=== PATIENT | male | born 1945 | race Caucasian/White ===

== ENCOUNTER 2017-09-20 23:05 | Emergency (ER) | payer MEDICARE ==
[2017-09-20] MEDS ORDERED: Albuterol/Ipratropium NEB.SOL* Albuterol 2.5 MG/Ipratropium 0.5 MG 3 ML INH ONE (23:56)
[2017-09-20] MEDS ORDERED: LORazepam INJ* 2 MG/ML 1 ML VIAL IV PUSH ONE (23:56)
[2017-09-20] MEDS ORDERED: Albuterol 2.5 MG/3 ML NEB.SOL* (0.083%) INH ONE (23:56)
[2017-09-20] MEDS ORDERED: methylPREDNISolone 125 MG* 2 ML VIAL IV ONE (23:56)
[2017-09-21 00:30] LABS: ABS Basophils 0.1 10^3/ul (0-0.2); ABS Eosinophils 0.3 10^3/ul (0-0.6); ABS Lymphocytes 0.9 10^3/ul (1.0-4.8); ABS Monocytes 1.2 10^3/ul (0-0.8); ABS Neutrophils 8.9 10^3/ul (1.5-7.7); ABS Nucleated RBC 0 10^3/ul; Eosinophil % 2.3 % (0-6); Hematocrit 39 % (42-52); Hemoglobin 13.1 g/dl (14.0-18.0); Lymphocyte % 8.2 % (25-47); Mean Corpuscular HGB Conc 34 g/dl (31-36); Mean Corpuscular Hemoglobin 29 pg (27-31); Mean Corpuscular Volume 85 fL (80-94); Mean Platelet Volume 7.7 um3 (7.4-10.4); Nucleated Red Blood Cells % 0.1; Platelet Count 310 10^3/ul (150-450); Red Blood Count 4.59 10^6/ul (4.0-5.4); Red Cell Distribution Width 15 % (10.5-15); White Blood Count 11.4 10^3/ul (3.5-10.8)
[2017-09-21 00:43] LABS: EGFR Non-African American 66.7 (>60)
[2017-09-21 01:52] VITALS: BP 144/75
--- NOTE | 2017-09-21 01:55 | ED ---
Raffi Danielson Rebecca, scribed for Wayne Dixon MD on 09/20/17 at 2339 . Complex/Multi-Sys Presentation - HPI Summary HPI Summary: Pt is a 72 y/o M BIBA who presents to ED c/o throat tightening s/p choking on a cough drop. Pt reports that he had leaned back in bed and his cough drop "went back into my windpipe." After this, he was able to lean forward and cough the drop out though afterwards he has had 3 episodes of being unable to breathe. Confirms he can breathe well, though it feels constricted. Reports a dull ache in the throat. Prior similar episode 10-12 years ago. Notes a recent illness for which he was started on Abx and eye drops today. - History Of Current Complaint Chief Complaint: EDThroatPain Time Seen by Provider: 09/20/17 23:26 Hx Obtained From: Patient Onset/Duration: Still Present Timing: Intermittent, Lasting: Severity Currently: Mild Location: Pain At: - Throat Character: Dull Associated Signs And Symptoms: Positive: Other - Throat pain and tightening - Allergies/Home Medications Allergies/Adverse Reactions: Allergies Allergy/AdvReac Type Severity Reaction Status Date / Time iodine Allergy Hives Verified 09/20/17 23:23 shellfish derived Allergy Anaphylatic Verified 09/20/17 23:23 Shock PMH/Surg Hx/FS Hx/Imm Hx Endocrine/Hematology History: Denies: Hx Diabetes Cardiovascular History: Denies: Hx Hypertension, Hx Pacemaker/ICD GI History: Reports: Hx Gastroesophageal Reflux Disease - WELL CONTROLLED History: Reports: Hx Kidney Stones - 30 YRS AGO Sensory History: Denies: Hx Contacts or Glasses, Hx Hearing Aid Opthamlomology History: Denies: Hx Contacts or Glasses Psychiatric History: Reports: Hx Depression - WELL CONTROLLED ON MEDS Denies: Hx Panic Disorder - Cancer History Cancer Type, Location and Year: SKIN CA - Surgical History Surgery Procedure, Year, and Place: LT KNEE SURGERY. SKIN CA REMOVAL FROM FACE Hx Anesthesia Reactions: No Infectious Disease History: No Infectious Disease History: Denies: Traveled Outside the [place] in Last 30 Days - Family History Known Family History: Positive: Other - Colon CA (father) - Social History Alcohol Use: Weekly Alcohol Amount: 3-4/WEEK IN THE SUMMER Substance Use Type: Reports: None Smoking Status (MU): Never Smoked Tobacco Review of Systems Positive: Sore Throat - Dull ache Positive: Other - Throat tightening; constricted All Other Systems Reviewed And Are Negative: Yes Physical Exam - Summary Physical Exam Summary: VITAL SIGNS: Reviewed. GENERAL: ~Patient is a well-developed and nourished female who is lying comfortable in the stretcher. Patient is not in any acute respiratory distress. Patient is anxious. HEAD AND FACE: No signs of trauma. No ecchymosis, hematomas or skull depressions. No sinus tenderness. EYES: PERRLA, EOMI x 2, No injected conjunctiva, no nystagmus. EARS: Hearing grossly intact. Ear canals and tympanic membranes are within normal limits. MOUTH: Oropharynx within normal limits. NECK: Supple, trachea is midline, no adenopathy, no JVD, no carotid bruit, no c- spine tenderness, neck with full ROM. CHEST: Symmetric, no tenderness at palpation LUNGS: Mild expiratory wheezes. No crackles. CVS: Regular rate and rhythm, S1 and S2 present, no murmurs or gallops appreciated. ABDOMEN: Soft, non-tender. No signs of distention. No rebound no guarding, and no masses palpated. Bowel sounds are normal. EXTREMITIES: FROM in all major joints, no edema, no cyanosis or clubbing. NEURO: Alert and oriented x 3. No acute neurological deficits. Speech is normal and follows commands. SKIN: Dry and warm Triage Information Reviewed: Yes Vital Signs On Initial Exam: Initial Vitals Temp Pulse Resp BP Pulse Ox 99.2 F 94 16 166/90 95 09/20/17 23:06 09/20/17 23:06 09/20/17 23:06 09/20/17 23:06 09/20/17 23:06 Vital Signs Reviewed: Yes Diagnostics - Vital Signs Vital Signs Temp Pulse Resp BP Pulse Ox 09/20/17 23:13 97 19 158/87 92 09/20/17 23:12 95 20 92 09/20/17 23:06 99.2 F 94 16 166/90 95 - Laboratory Result Diagrams: 09/21/17 00:12 09/21/17 00:12 Lab Statement: Any lab studies that have been ordered have been reviewed, and results considered in the medical decision making process. - Radiology CXR Xray Interpretation: No Acute Changes - No acute process. Radiology Interpretation Completed By: ED Physician Re-Evaluation - Re-Evaluation First Eval Re-Evaluation Time: 01:50 Change: Improved Comment: Pt is doing much better. Complex Multi-Symp Course/Dx Assessment/Plan: Pt is a 72 y/o M BIBA who presents to ED c/o throat tightening s/p choking on a cough drop. Pt reports that he had leaned back in bed and his cough drop "went back into my windpipe." After this, he was able to lean forward and cough the drop out though afterwards he has had 3 episodes of being unable to breathe. Confirms he can breathe well, though it feels constricted. Reports a dull ache in the throat. Prior similar episode 10-12 years ago. Notes a recent illness for which he was started on Abx and eye drops today. CXR reveals no acute findings. Bloodwork was done. Influenza A and B are negative. In the ED course, pt received ventolin, duoneb, ativan and solu-medrol which improved symptoms. Pt will be D/C to home with Dx of choke episode and anxiety. He understands and agrees. Allergies noted. - Diagnoses Provider Diagnoses: Choking episode, Anxiety Discharge - Sign-Out/Discharge Documenting (check all that apply): Discharge - Discharge - Discharge Plan Condition: Stable Disposition: HOME Patient Education Materials: Anxiety (ED), Foreign Body in Pharynx (ED) Referrals: Connor Tolbert MD [Primary Care Provider] - 3 Days Additional Instructions: RETURN TO EMERGENCY DEPARTMENT FOR ANY NEW OR WORSENING SYMPTOMS The documentation as recorded by the Raffi zambrano Rebecca accurately reflects the service I personally performed and the decisions made by me, Wayne Dixon MD.
--- NOTE | 2017-09-21 07:59 | RAD ---
HISTORY: Cough, foreign body sensation COMPARISONS: None VIEWS: 1: frontal portable view of the chest at 12:05 AM FINDINGS: LINES AND TUBES: None. CARDIOMEDIASTINAL SILHOUETTE: The cardiomediastinal silhouette is normal for portable technique. PLEURA: The costophrenic angles are sharp. No pleural abnormalities are noted. LUNG PARENCHYMA: The lungs are clear. ABDOMEN: The upper abdomen is clear. There is no subphrenic gas. BONES AND SOFT TISSUES: No bone or soft tissue abnormalities are noted. IMPRESSION: NO ACTIVE CARDIOPULMONARY DISEASE.
== END 2017-09-21 02:10 | disposition home or self-care (01) ==
LOC: ED 23:05
DX: R09.89 Other specified symptoms and signs involving the circulatory and respiratory systems (principal); F41.9 Anxiety disorder, unspecified
CPT/HCPCS: 36415; 71045; 80053; 85025; 87502; 94640; 96374; 96375; 99283; A9270-GY; J2060; J2930

== ENCOUNTER 2018-07-02 08:22 | Emergency (ER) | payer MEDICARE ==
[2018-07-02 08:36] VITALS: BP 124/73
[2018-07-02] MEDS ORDERED: Ondansetron ODT TAB* 4 MG PO ONE (09:34)
[2018-07-02] MEDS ORDERED: Ibuprofen TAB* 600 MG PO ONE (09:34)
--- NOTE | 2018-07-02 09:35 | UC ---
Complaint Male HPI - HPI Summary HPI Summary: DEVELOPED EXCRUCIATING LEFT FLANK/GROIN PAIN LAST NIGHT. HAD A FEW TWINGES OF DISCOMFORT OVER THE PAST FEW DAYS THAT WOULD SPONTANEOUSLY RESOLVE. STATES THIS PAIN IS SIMILAR TO WHEN HE HAD A KIDNEY STONE ABOUT 50 YEARS AGO. HE DENIES ANY DYSURIA OR URINARY FREQUENCY. NO FEVER. DOES HAVE SOME MILD NAUSEA BUT NO VOMITING. HE IS AN ACTIVE INDIVIDUAL AND WORKS OUT REGULARLY BUT ADMITS HE DOES NOT HYDRATE VERY WELL. FOLLOWS WITH DR. RODRÍGUEZ (UROLOGY). - History of Current Complaint Chief Complaint: UCGU Stated Complaint: KIDNEY STONE Time Seen by Provider: 07/02/18 08:48 Hx Obtained From: Patient Onset/Duration: Sudden Onset, Lasting Hours, Still Present Timing: Constant Severity Initially: Moderate Severity Currently: Severe Pain Intensity: 10 Pain Scale Used: 0-10 Numeric Location: Groin Character: Sharp, Colicy Aggravating Factor(s): Nothing Alleviating Factor(s): Nothing Associated Signs And Symptoms: Positive: Back Pain, Nausea. Negative: Fever, Dysuria - Allergies/Home Medications Allergies/Adverse Reactions: Allergies Allergy/AdvReac Type Severity Reaction Status Date / Time iodine Allergy Hives Verified 07/02/18 08:36 shellfish derived Allergy Anaphylatic Verified 07/02/18 08:36 Shock Home Medications: Home Medications DULoxetine CAP* [Cymbalta CAP*] 20 mg PO DAILY 07/02/18 [History Confirmed ] PMH/Surg Hx/FS Hx/Imm Hx GI/ History: Kidney Stones Psychological History: Depression Other Cancer History: SKIN CANCER - Surgical History Surgical History: Yes Surgery Procedure, Year, and Place: LT KNEE SURGERY. SKIN CA REMOVAL FROM FACE. carpal tunnel - Family History Known Family History: Positive: Other - Colon [place] (father) - Social History Alcohol Use: Occasionally Alcohol Amount: 3-4/WEEK IN THE SUMMER Substance Use Type: None Smoking Status (MU): Never Smoked Tobacco Review of Systems All Other Systems Reviewed And Are Negative: Yes Constitutional: Positive: Negative Respiratory: Positive: Negative Cardiovascular: Positive: Negative Gastrointestinal: Positive: Nausea Genitourinary: Positive: Other - LEFT GROIN/FLANK PAIN. Negative: Dysuria, Frequency, Urgency Physical Exam Triage Information Reviewed: Yes Appearance: Well-Appearing, Well-Nourished, Pain Distress - MODERATE Vital Signs: Initial Vital Signs Temp 97.6 F 07/02/18 08:33 Pulse 79 07/02/18 08:33 Resp 20 07/02/18 08:33 BP 124/73 07/02/18 08:33 Pulse Ox 99 07/02/18 08:33 Laboratory Tests 07/02/18 08:50 POC Urine Color Jessica POC Urine Clarity Clear POC Urine pH 6.0 POC Ur Specif [place] >= 1.030 POC Urine Protein Negative POC Ur Glucose (UA) Negative POC Urine Ketones Negative POC Urine Blood Trace-intact A POC Urine Nitrite Negative POC Urine Bilirubin Negative POC Urine Urobilinogen 0.2 POC U Leukocyte Esteras Negative Vital Signs Reviewed: Yes Eyes: Positive: Conjunctiva Clear ENT: Positive: Hearing grossly normal Neck: Positive: Supple Respiratory Exam: Normal Cardiovascular Exam: Normal Abdomen Description: Positive: Nontender, Soft. Negative: CVA Tenderness (R), CVA Tenderness (L), Distended, Guarding Musculoskeletal: Positive: No Edema Neurological: Positive: Alert Psychological: Positive: Age Appropriate Behavior Skin: Negative: Rashes Diagnostics - Radiology CT ABD/PELVIS W/O CONTRAST Radiology Interpretation Completed By: Radiologist Summary of Radiographic Findings: 1. 0.4 CM CALCULUS OF THE LEFT PROXIMAL URETER WITH MILD HYDRONEPHROSIS AND PERINEPHRIC STRANDING SUGGESTIVE OF FORNICEAL RUPTURE. 2. DIVERTICULOSIS. 3. HIATAL HERNIA Complaint Male Course/Dx - Course Course Of Treatment: PT PAIN WAS MUCH IMPROVED AFTER 600 MG OF IBUPROFEN. ADVISED TO CONTINUE THIS NEEDED FOR DISCOMFORT. PERCOCET GIVEN FOR BREAKTHROUGH PAIN. 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 SPOKE TO DR. RODRÍGUEZ WHO ADVISED PAIN CONTROL AND WAITING FOR A DAY OR 2 TO SEE IF THE STONE MOVES FURTHER DOWN THE URINARY TRACT. STATES POSSIBLE FORNICEAL RUPTURE DOES NOT CHANGE THE MANAGEMENT. ENCOURAGED PATIENT TO PUSH FLUIDS AND STAY WELL- HYDRATED. HE WILL CALL DR. RODRÍGUEZ'S OFFICE TODAY FOR FOLLOW-UP APPOINTMENT. - Differential Dx/Diagnosis Provider Diagnosis: Kidney stone on left side - Physician Notifications Discussed Patient Care With: Kane Rodríguez Time Discussed With Above Provider: 10:25 Instructed by Provider To: Have Pt Call For Appt. Discharge - Sign-Out/Discharge Documenting (check all that apply): Patient Departure All imaging exams completed and their final reports reviewed: Yes - Discharge Plan Condition: Stable Disposition: HOME Prescriptions: Ondansetron ODT TAB* [Zofran Odt TAB*] 4 mg PO Q6H PRN #20 tab.odt PRN Reason: Nausea/Vomiting oxyCODONE/Acetamin 5/325 MG* [Percocet 5/325 TAB*] 1 tab PO Q6H PRN #12 tab MDD 4 PRN Reason: Pain Patient Education Materials: Kidney Stones (ED) Referrals: Connor Tolbert MD [Primary Care Provider] - If Needed Kane Rodríguez MD [Medical Doctor] - Additional Instructions: CT TODAY SHOWS: 1. 0.4 CM CALCULUS OF THE LEFT PROXIMAL URETER WITH MILD HYDRONEPHROSIS AND PERINEPHRIC STRANDING SUGGESTIVE OF FORNICEAL RUPTURE. 2. DIVERTICULOSIS. 3. HIATAL HERNIA 600 MG IBUPROFEN EVERY 6 HOURS NEEDED FOR DISCOMFORT. OXYCODONE GIVEN FOR BREAKTHROUGH PAIN. ZOFRAN FOR NAUSEA. CALL DR. RODRÍGUEZ'S OFFICE TODAY AND SCHEDULE FOLLOW-UP APPOINTMENT FOR TOMORROW OR THE NEXT DAY. GO TO THE ER WITHOUT FAIL IF YOU DEVELOP WORSENING PAIN, FEVER, PERSISTENT NAUSEA/VOMITING OR ANY OTHER CONCERNING SYMPTOMS. PUSH FLUIDS! - Billing Disposition and Condition Condition: STABLE Disposition: Home
== END 2018-07-02 10:50 | disposition home or self-care (01) ==
LOC: UCEAST 08:22
DX: N20.0 Calculus of kidney (principal); Z88.8 Allergy status to other drugs, medicaments and biological substances; Z91.013 Allergy to seafood; F32.9 Major depressive disorder, single episode, unspecified; Z79.899 Other long term (current) drug therapy
CPT/HCPCS: 74176; 81003; 99212; A9270-GY; G0463

== ENCOUNTER 2019-03-01 16:28 | Emergency (ER) | payer MEDICARE ==
--- OUTSIDE RECORDS SUMMARY | 2019-03-01 16:34 | XMS REPORT | Continuity of Care Document ---
:1945 External Reference #:[id number] Author Name Rod Joshi, OD Address [address] [facility] [place] [address] Care Team Providers Name Role Phone Connor Tolbert MD - Internal Medicine Care Team Information Clinical Rehabilitation Coordinator [phone] Problems Description No Information Available Social History Type Date Description Comments Sex Unknown ETOH Use Occasionally consumes alcohol Tobacco Use Start: Unknown Patient has never smoked Smoking Status Reviewed: 02/07/19 Patient has never smoked Allergies, Adverse Reactions, Alerts Active Allergies Reaction Severity Comments Date Iodine 01/25/2017 Seafood 01/25/2017 Medications Active Medications SIG Qnty Indications Ordering Provider Date Doxazosin Mesylate Unknown 2mg Tablets Finasteride 5mg Unknown Tablets Nexium 40mg Unknown Capsules Duloxetine HCL Unknown 20mg Caps DR Mercado Amphetamine-Dextroamphetamine Unknown 10mg Tablets Immunizations Description No Information Available Vital Signs Date Vital Result Comment 01/25/2017 9:53am Intraocular Pressure Right Eye 16 mmHg Intraocular Pressure Left Eye 16 mmHg Results Description No Information Available Procedures Description No Information Available Medical Devices Description No Information Available Encounters Description No Information Available Assessments Description No Information Available Plan of Treatment No Information Available Functional Status Description No Information Available Mental Status Description No Information Available Referrals Description No Information Available
[2019-03-01] MEDS ORDERED: NS 0.9% 1000 ML** 1,000 ML IV ONE (17:12)
[2019-03-01] MEDS ORDERED: Ondansetron INJ* 2 MG/ML VIAL IV ONE (17:13)
[2019-03-01] MEDS ORDERED: Meclizine TAB* 12.5 MG PO ONE (17:14)
--- NOTE | 2019-03-01 17:21 | UC ---
Dizzy HPI HPI Summary: SUDDEN ONSET OF EXTREME DIZZINESS 3-4 HOURS AGO. PATIENT DROVE BACK FROM [place] AND WHEN GETTING OUT OF THE CAR STARTED FEELING SLIGHTLY "OFF". BY THE TIME HW GOT INTO THE HOUSE HE HAD TO LIE DOWN DUE TO THE EXTREME DIZZINESS. SYMPTOMS PERSISTED SO HE DECIDED TO COME HERE. WHILE TRYING TO GET INTO THE CAR TO COME HERE HE STARTED THROWING UP DUE TO THE NAUSEA. HE DENIES CHEST PAIN , SHORTNESS OF BREATH, HEADACHE. 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 Negative: Tinnitus, Chest Pain, SOB, Palpitations - Allergies/Home Medications Allergies/Adverse Reactions: Allergies Allergy/AdvReac Type Severity Reaction Status Date / Time iodine Allergy Hives Verified 03/01/19 16:44 shellfish derived Allergy Anaphylatic Verified 03/01/19 16:44 Shock Home Medications: Home Medications Dextroamphetamine/Amphetamine [Adderall 10 mg-] 1 tab PO DAILY 03/01/19 [ History Confirmed 03/01/19] Doxazosin TAB* [Cardura TAB*] 4 tab PO DAILY 03/01/19 [History Confirmed ] PMH/Surg Hx/FS Hx/Imm Hx GI/ History: Kidney Stones Psychological History: Depression Other Cancer History: SKIN CANCER - Surgical History Surgical History: Yes Surgery Procedure, Year, and Place: LT KNEE SURGERY. SKIN CA REMOVAL FROM FACE. carpal tunnel - Family History Known Family History: Positive: Other - Colon [place] (father) - Social History Alcohol Use: Daily Alcohol Amount: 3-4/WEEK IN THE SUMMER Substance Use Type: None Smoking Status (MU): Never Smoked Tobacco Review of Systems All Other Systems Reviewed And Are Negative: Yes Constitutional: Positive: Negative Skin: Positive: Negative Respiratory: Positive: Negative Cardiovascular: Positive: Negative Gastrointestinal: Positive: Vomiting, Nausea Neurological: Positive: Other - DIZZY Physical Exam Triage Information Reviewed: Yes Appearance: No Pain Distress, Well-Nourished Vital Signs: Initial Vital Signs Temp 98.8 F 03/01/19 16:40 Pulse 65 03/01/19 16:40 Resp 18 03/01/19 16:40 BP 159/83 03/01/19 16:40 Pulse Ox 98 03/01/19 16:40 Vital Signs Reviewed: Yes Eyes: Positive: Conjunctiva Clear ENT: Positive: Hearing grossly normal, TMs normal Neck: Positive: Supple, Nontender, No Lymphadenopathy Respiratory Exam: Normal Cardiovascular Exam: Normal Abdomen Description: Positive: Soft Musculoskeletal: Positive: No Edema Neurological: Positive: Alert Psychological: Positive: Age Appropriate Behavior Skin: Negative: Rashes Diagnostics - EKG Cardiac Rate: Bradycardia - 58 BPM Cardiac Rhythm: Sinus: Normal Ectopy: PACs ST Segment: Normal Dizzy Course/Dx - Course Course Of Treatment: PATIENT WITH RELATIVELY SUDDEN ONSET OF EXTREME DIZZINESS THIS AFTERNOON. NO CLEAR TRIGGER. PATIENT UNABLE TO SIT UP OR MOVE WITHOUT BECOMING EXTREMELY DIZZY AND NAUSEATED. PIV PLACED. NORMAL SALINE RUNNING IN. 4 MG ZOFRAN AND 25 MG OF MECLIZINE ADMINISTERED. TO [facility] [place] [facility] BY AMBULANCE. - Differential Dx/Diagnosis Provider Diagnosis: Dizziness - Physician Notifications Discussed Patient Care With: Tyree Stahl - TO [facility] [place] [facility] BY AMBULANCE Time Discussed With Above Provider: 17:25 Instructed by Provider To: MD Will See In ED Discharge ED - Sign-Out/Discharge Documenting (check all that apply): Patient Departure All imaging exams completed and their final reports reviewed: No Studies - Discharge Plan Condition: Stable Disposition: TRANS HIGHER LVL OF CARE FAC Referrals: Connor Tolbert MD [Primary Care Provider] - - Billing Disposition and Condition Condition: STABLE Disposition: Trans Higher Lvl of Care Fac
[2019-03-01 17:28] VITALS: BP 160/84
== END 2019-03-01 17:35 | disposition short-term general hospital (02) ==
LOC: UCEAST 16:28
DX: R42 Dizziness and giddiness (principal); R11.2 Nausea with vomiting, unspecified; R61 Generalized hyperhidrosis; R00.1 Bradycardia, unspecified; Z88.3 Allergy status to other anti-infective agents; Z91.013 Allergy to seafood
CPT/HCPCS: 93005; 96374; 99213; A9270-GY; G0463; J2405

== ENCOUNTER 2019-03-01 18:01 | Emergency (ER) | payer MEDICARE ==
--- NOTE | 2019-03-01 18:52 | ED ---
Dizziness - HPI Summary HPI Summary: Patient is a 73 y/o M presenting to [facility] via EMS with complaints of N/V and dizziness. He states that earlier this morning, he felt his ears felt clogged. He reports Sx onset at left ear, spread to right. 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 Sx eventually resolved. He spent the day driving his car and running errands. Later in the day, patient returned home. As he was stepping out of the car, patient felt unsteady on his felt and felt dizzy, nauseous. Patient went inside his house and lied on the couch. Dizziness persisted. He called his PCP and [facility] and decided to go to urgent care. He states that he needed significant assistance ambulating due to his dizziness. As he was going to his car, he vomited. Patient received zofran and meclizine at urgent care and was sent to [facility] for further workup. He reports no similar previous Sx. He denies SAL, CP, and palpitations. Hx of epigotal seizure around a year ago. He makes note of four episodes throughout his life that he characterizes as sleep apnea. Patient is on Adderall. Hx of kidney stones noted. Patient reports that he does not use tobacco, alcohol, and substances. FMHx of HTN, HLD denied. Mother possibly had diabetes. Home medications and allergies are reviewed. - History Of Current Complaint Chief Complaint: EDDizziness Stated Complaint: "DIZZINESS/VOMITING PER EMS COMING FROM [facility]" Time Seen by Provider: 03/01/19 18:34 Hx Obtained From: Patient Onset/Duration: Still Present Timing: Constant Character: Dizzy Associated Signs And Symptoms: Positive: Nausea, Vomiting, Other: - negative - SAL. Negative: Chest Pain, Palpitations - Allergies/Home Medications Allergies/Adverse Reactions: Allergies Allergy/AdvReac Type Severity Reaction Status Date / Time iodine Allergy Hives Verified 03/01/19 16:44 shellfish derived Allergy Anaphylatic Verified 03/01/19 16:44 Shock Home Medications: Home Medications Finasteride TAB* [Proscar TAB*] 5 mg PO DAILY 03/01/19 [History Confirmed ] PMH/Surg Hx/FS Hx/Imm Hx Endocrine/Hematology History: Denies: Hx Diabetes Cardiovascular History: Denies: Hx Hypertension, Hx Pacemaker/ICD Respiratory History: Denies: Hx Asthma, Hx Chronic Obstructive Pulmonary Disease (COPD) GI History: Reports: Hx Gastroesophageal Reflux Disease - WELL CONTROLLED History: Reports: Hx Kidney Stones - 30 YRS AGO Sensory History: Denies: Hx Contacts or Glasses, Hx Hearing Aid Opthamlomology History: Denies: Hx Contacts or Glasses Psychiatric History: Reports: Hx Depression - WELL CONTROLLED ON MEDS Denies: Hx Panic Disorder - Cancer History Cancer Type, Location and Year: SKIN CA - Surgical History Surgery Procedure, Year, and Place: LT KNEE SURGERY. SKIN CA REMOVAL FROM FACE. carpal tunnel Hx Anesthesia Reactions: No Infectious Disease History: No Infectious Disease History: Denies: Traveled Outside the [place] in Last 30 Days - Family History Known Family History: Positive: Other - Colon CA (father) Negative: Hypertension - Social History Alcohol Use: None Substance Use Type: Reports: None Smoking Status (MU): Never Smoked Tobacco Review of Systems Negative: Palpitations, Chest Pain Positive: Vomiting, Nausea Neurological: Other - positive - dizziness Negative: Headache All Other Systems Reviewed And Are Negative: Yes Physical Exam - Summary Physical Exam Summary: VITAL SIGNS: Reviewed. GENERAL: Patient is a well-developed and nourished male who is lying comfortable in the stretcher. Patient is not in any acute respiratory distress. HEAD AND FACE: No signs of trauma. No ecchymosis, hematomas or skull depressions. No sinus tenderness. EYES: PERRLA, EOMI x 2, No injected conjunctiva, no nystagmus. EARS: Hearing grossly intact. Ear canals and tympanic membranes are within normal limits. MOUTH: Oropharynx within normal limits. NECK: Supple, trachea is midline, no adenopathy, no JVD, no carotid bruit, no c- spine tenderness, neck with full ROM. CHEST: Symmetric, no tenderness at palpation. LUNGS: Clear to auscultation bilaterally. No wheezing or crackles. CVS: Regular rate and rhythm, S1 and S2 present, no murmurs or gallops appreciated. ABDOMEN: Soft, non-tender. No signs of distention. No rebound, no guarding, and no masses palpated. Bowel sounds are normal. EXTREMITIES: FROM in all major joints, no edema, no cyanosis or clubbing. NEURO: Alert and oriented x 3. No acute neurological deficits. Speech is normal and follows commands. GCS 15, NIH 0 SKIN: Dry and warm. Triage Information Reviewed: Yes Vital Signs On Initial Exam: Initial Vitals Temp Pulse Resp BP Pulse Ox 98.2 F 63 16 185/97 100 03/01/19 18:06 03/01/19 18:06 03/01/19 18:06 03/01/19 18:06 03/01/19 18:06 Vital Signs Reviewed: Yes - Judy Coma Scale Best Eye Response: 4 - Spontaneous Best Motor Response: 6 - Obeys Commands Best Verbal Response: 5 - Oriented Coma Scale Total: 15 Diagnostics - Vital Signs Vital Signs Temp Pulse Resp BP Pulse Ox 03/01/19 18:09 62 12 185/97 98 03/01/19 18:06 98.2 F 63 16 185/97 100 - Laboratory Result Diagrams: 03/01/19 19:41 03/01/19 19:41 Lab Statement: Any lab studies that have been ordered have been reviewed, and results considered in the medical decision making process. - Radiology CXR Radiology Interpretation Completed By: ED Physician Summary of Radiographic Findings: No acute process, pending official report. - CT BRAIN CT CT Interpretation Completed By: Radiologist Summary of CT Findings: IMPRESSION: No acute intracranial findings. THIS REPORT WAS REVIEWED BY DR. GODOY - EKG 190 Cardiac Rate: NL - rate of 61 BPM EKG Rhythm: Sinus Rhythm EKG Comparison: No Significant Change - compared to 03/01/19 Summary of EKG Findings: EKG showed NSR with rate of 61 BPM, no ST elevation, ST depression in V3, V5, V6, no change compared to 03/01/19. This EKG was reviewed and interpreted by ED physician. National Institutes Of Health - NIH Scale Level of Consciousness: Alert/Keenly Responsive Ask Patient the Month and His/Her Age: Both Correct Ask Pt to Open/Close Eyes and Dinkey Locomotive Engineer/Release Non-Paretic Hand: Both Correctly Best Gaze (Only Horizontal Eye Movement): Normal Visual Field Testing: No Visual Loss Facial Paresis-Pt to Smile & Close Eyes or Grimace Symmetry: Normal/Symmetrical Motor Function - Right Arm: No Drift-Holds 10 Seconds Motor Function - Left Arm: No Drift-Holds 10 Seconds Motor Function - Right Leg: No Drift-Holds 10 Seconds Motor Function - Left Leg: No Drift-Holds 10 Seconds Limb Ataxia-Must be out of Proportion to Weakness Present: Absent Sensory (Use Pinprick to Test Arms/Legs/Trunk/Face): Normal Best Language (Describe Picture, Name Items): No Aphasia Dysarthria (Read Several Words): Normal Extinction and Inattention: No Abnormality Total Score: 0 Re-Evaluation - Re-Evaluation First Eval Re-Evaluation Time: 21:02 Change: Improved Comment: Patient reports improvement in Sx. He denies dizziness and nausea. Patient was capable of independent ambulation with a good, steady gait. He was discharged to home with prescription for meclizine. Dizzy Course/Dx - Course Assessment/Plan: This patient is a 73-year-old male who presents to the emergency department with a chief complaint of having dizziness associated with nausea and vomiting. He reports that he started having some ear discomfort, which he characterizes as fluids in his ears, in the left more than the right ear. Blood test results without any significant abnormality except for slight anemia, glucose is 109, magnesium is 1.8 and urinalysis is negative for UTI. Chest x-ray impression: No acute cardiopulmonary disease. Head CT impression: No acute intracranial findings. After medications the patients symptoms have significantly improved. I ambulated the patient and he has good steady walk. The patient is not ataxic and he doesnt have any other complaints. At this point I discussed all the findings and test results with the patient. He was instructed to return to the emergency room immediately if any of the symptoms return or worsen. Patient understand and agree. Neurological exam before discharge: Patient is alert and oriented x 3. No acute neurological deficits. Patient's vital signs are stable. Patient is to follow up with PCP in the next 2 3 days. They understand and agree. Plan of care was discussed with the patient and patient understands and agrees with the plan of care. All questions were answered at patient satisfaction. There were no further complaints or concerns. - Diagnoses Provider Diagnoses: Vertigo Discharge ED - Sign-Out/Discharge Documenting (check all that apply): Patient Departure - discharge Patient Received Moderate/Deep Sedation with Procedure: No - Discharge Plan Condition: Stable Disposition: HOME Prescriptions: Meclizine TAB* [Antivert 12.5 TAB*] 25 mg PO TID PRN #30 tab PRN Reason: Vertigo Patient Education Materials: Vertigo (ED) Referrals: Connor Tolbert MD [Primary Care Provider] - 3 Days Additional Instructions: RETURN TO ED FOR ANY NEW OR WORSENING SYMPTOMS. PLEASE FOLLOW UP WITH YOUR PRIMARY CARE PHYSICIAN WITHIN THREE DAYS. - Billing Disposition and Condition Condition: STABLE Disposition: Home - Attestation Statements Document Initiated by Jay: Yes Documenting Scribe: HERBERT VILLA Provider For Whom Jay is Documenting (Include Credential): GINA GODOY MD Scribe Attestation: IHERBERT, scribed for GINA GODOY MD on 03/03/19 at 1115. Scribe Documentation Reviewed: Yes Provider Attestation: The documentation as recorded by the HERBERT zambrano accurately reflects the service I personally performed and the decisions made by me, GINA GODOY MD Status of Scribe Document: Viewed
[2019-03-01] MEDS ORDERED: Meclizine TAB* 12.5 MG PO ONE ×2 (19:01→21:02)
[2019-03-01] MEDS ORDERED: Ondansetron INJ* 2 MG/ML VIAL IV ONE (19:01)
[2019-03-01 19:52] LABS: ABS Basophils 0.1 10^3/ul (0-0.2); ABS Lymphocytes 0.7 10^3/ul (1.0-4.8); ABS Monocytes 0.4 10^3/ul (0-0.8); ABS Neutrophils 7.5 10^3/ul (1.5-7.7); Eosinophil % 0.3 %; Hematocrit 40 % (42-52); Hemoglobin 13.3 g/dL (14.0-18.0); Mean Corpuscular HGB Conc 33 g/dL (31-36); Mean Corpuscular Hemoglobin 28 pg (27-31); Mean Corpuscular Volume 85 fL (80-94); Mean Platelet Volume 8.3 fL (7.4-10.4); Platelet Count 239 10^3/uL (150-450); Red Blood Count 4.75 10^6 /uL (4.18-5.48); Red Cell Distribution Width 16 % (10-15); White Blood Count 8.7 10^3/uL (3.5-10.8)
[2019-03-01 20:04] LABS: Albumin/Globulin Ratio 1.5 (1-3); BUN/Creatinine Ratio 24.7 (8-20); C Reactive Protein 1.84 mg/L (<8.01); EGFR African American 101.7 (>60); Globulin 2.7 g/dL (2-4); Magnesium 1.8 mg/dL (1.9-2.7); Potassium 4.5 mmol/L (3.5-5.0); Total Bilirubin 0.7 mg/dL (0.2-1.0); Total Protein 6.7 g/dL (6.4-8.9)
[2019-03-01 20:10] LABS: Urine Appearance Clear; Urine Bilirubin Negative (Negative); Urine Blood Negative (Negative); Urine Color Yellow; Urine Glucose Negative (Negative); Urine Ketones Negative (Negative); Urine Nitrite Negative (Negative); Urine Protein Negative (Negative); Urine Specific Gravity 1.018 (1.010-1.030); Urine Urobilinogen Negative (Negative)
[2019-03-01 20:39] LABS: TSH (Thyroid Stimulating Horm) 2.66 mcIU/mL (0.34-5.60)
[2019-03-01] MEDS ORDERED: Magnesium Oxide TAB* 400 MG PO ONE (21:09)
[2019-03-01 21:28] VITALS: BP 152/88
== END 2019-03-01 21:27 | disposition home or self-care (01) ==
LOC: ED 18:01
DX: R42 Dizziness and giddiness (principal); K21.9 Gastro-esophageal reflux disease without esophagitis; F32.9 Major depressive disorder, single episode, unspecified; Z85.828 Personal history of other malignant neoplasm of skin; Z91.041 Radiographic dye allergy status; Z79.899 Other long term (current) drug therapy
CPT/HCPCS: 36415; 70450; 71045; 80053; 81003; 83605; 83735; 83880; 84443; 84484; 85025; 86140; 93005; 96374; 99284; A9270-GY; J2405